=== PATIENT | male | born 2000 | race Caucasian/White ===

== ENCOUNTER 2021-01-21 13:38 | Emergency (ER) | payer OTHER ==
[~2021-01-21 13:38] MED LIST: Iopamidol-370 76% 500 ML 1 ML ONE
[2021-01-21 14:14] LABS: #Eosinphils 0.5 thou/uL (0.0-0.7); #Lymphocytes 1.8 thou/uL (1.20-3.40); #Monocytes 0.4 thou/uL (0.11-0.59); #Neutrophils 2.7 thou/uL (1.40-6.50); %Basophils 0.5 % (0.0-1.0); %Eosinophils 9.2 % (0.0-10.0); %Lymphocytes 32.7 % (21.0-51.0); %Monocytes 7.3 % (0.0-10.0); %Neutrophils 50.3 % (42.0-75.0); Hemoglobin 15.3 g/dL (14.0-18.0); Mean Corpuscular HGB CONC 33.8 g/dL (32.0-36.0); Mean Corpuscular Volume 97.6 fL (78.0-98.0); Mean Platelet Volume 8.6 fL (7.4-10.4); Platelet Count 165 thou/uL (130-400); RBC Distribution Width 11.4 % (11.5-14.5); Red Blood Cell (RBC) Count 4.62 mill/uL (4.70-6.10); White Blood Cell (WBC) Count 5.4 thou/uL (4.8-10.8)
[2021-01-21 14:35] LABS: ALT (SGPT) 16 U/L (8-55); AST (SGOT) 13 U/L (5-34); Alkaline Phosphatase 98 U/L (40-110); Anion Gap 12 mmol/L (10-20); BUN (Urea Nitrogen) 18 mg/dL (8.9-20.6); Bilirubin, Total 0.5 mg/dL (0.2-1.2); Calc. Creatinine Clearance 0 mL/min (70-130); Calcium 8.9 mg/dL (7.8-10.44); Carbon Dioxide 25 mmol/L (22-29); Chloride 106 mmol/L (98-107); Globulin 2.8 g/dL (2.4-3.5); Glucose 101 mg/dL (70-105); Potassium 3.9 mmol/L (3.5-5.1); Protein, Total 6.8 g/dL (6.0-8.3); Sodium 139 mmol/L (136-145)
== END 2021-01-21 16:00 | disposition home or self-care (01) ==
LOC: ERS 13:38
DX: K59.00 Constipation, unspecified (principal); K62.89 Other specified diseases of anus and rectum
CPT/HCPCS: 36415; 74177; 80053; 85025; Q9967